=== PATIENT | male | born 1955 | race Caucasian/White ===

== ENCOUNTER 2021-11-01 13:10 | Outpatient (CLI) | payer MEDICARE, SELFPAY ==
--- NOTE | 2021-11-01 13:34 | XR_ITS ---
WS: [id number] XR knee RT 1-2V [id number] REASON FOR EXAM: Right knee pain and swelling. FINDINGS: No fracture or focal bone lesion. Mild narrowing of the medial and lateral knee joint space with mild subchondral sclerosis and small m arginal osteophytes. Similar arthropathic change in the patellofemoral joint space. No soft tissue abnormality. XR/XR knee RT 1-2V [id number] IMPRESSION: Mild changes of osteoarthritis in the right knee.
== END 2021-11-01 13:11 | disposition home or self-care (01) ==
LOC: RAD 13:13
PROVIDERS: Visit Provider Internal Medicine
DX: M17.11 Unilateral primary osteoarthritis, right knee (principal); M25.561 Pain in right knee; M25.461 Effusion, right knee
CPT/HCPCS: 73560

== ENCOUNTER → 2021-12-05 08:19 | Outpatient (BNVA) | payer MEDICARE, SELFPAY | PROVIDERS: Referring Provider Family Medicine Adult Medicine; Visit Provider Orthopaedic Surgery | DX: M25.561 Pain in right knee (principal) | CPT/HCPCS: 99203 ==

== ENCOUNTER 2022-04-05 11:28 | Outpatient (CLI) | payer MEDICARE, SELFPAY ==
--- NOTE | 2022-04-05 11:40 | IR_ITS ---
WS: [id number] Right knee arthrogram for CT of the right knee, 04/05/2022 Clinical Data: PAIN IN RIGHT KNEE Comparison: Right knee, 11/01/2021 Fluoroscopy time: 0min [id number] # of spot films: 1 Findings: With the usual technique the medial aspect of the right knee was cleansed with an alcohol solution. T hen 5 mL of 1% lidocaine were injected via a 25-gauge needle into the subcutaneous tissue of the righ t knee. There an 18-gauge needle was inserted and a mixture of half saline and half Omnipaque 240 fo r a total of 40 mL was injected filling entire right knee joint. There were no complications. IR/[place] [id number] Impression: Right knee arthrogram to inject contrast for right knee CT scan.
--- NOTE | 2022-04-05 12:30 | CT_ITS ---
WS: [id number] CT scan of the right knee. Additional two-dimensional coronal and sagittal reconstruction was perform ed. MIP images were also performed. 04/05/2022 Clinical Data: M25.561 - Pain in right knee Comparison: Right knee, 11/01/2021 DLP: 425.[address] scans at [facility] use at least one of these dose optimization techniques: automated e xposure control; mA and/or kV adjustment per patient size (includes targeted exams where dose is matc hed to clinical indication); or iterative reconstruction. Findings: Contrast material filled the knee joint. There was a small mid cartilage defect of the lateral chond rocartilage on the tibial and the condyle surface. There is a small mid cartilage defect of the media l chondrocartilage on the condyle surface. The medial and lateral menisci show no tears. The anterior cruciate and posterior cruciate ligaments are intact. The medial and lateral collateral ligaments show no tears or swelling. There is a small B efrain's cyst. Patella shows minimal chondromalacia. No fractures are seen. The soft tissues surroundin g the knee show no abnormalities. CT/CT knee RT w con [id number] Impression: 1. Small cartilage defects of the lateral and medial chondrocartilage. 2. Small Ruggiero's cyst. 3. Negative for meniscal or ligamentous tears.
[2022-04-05] MEDS: iohexol 240 mg/mL 50 mL Btl INTRA-ARTI (12:52)
== END 2022-04-05 11:29 | disposition home or self-care (01) ==
PROVIDERS: PCP Internal Medicine; Visit Provider Orthopaedic Surgery
DX: M71.21 Synovial cyst of popliteal space [Baker], right knee (principal)
CPT/HCPCS: 27369; 73701; 77002

== ENCOUNTER → 2022-04-09 08:33 | Outpatient (BNVA) | payer MEDICARE, SELFPAY | PROVIDERS: PCP Internal Medicine; Visit Provider Orthopaedic Surgery | DX: M25.561 Pain in right knee (principal) | CPT/HCPCS: 99213 ==

== ENCOUNTER → 2022-04-26 11:35 | Outpatient (BNVA) | payer MEDICARE, SELFPAY | PROVIDERS: Visit Provider Family Medicine | DX: I10 Essential (primary) hypertension (principal); E78.5 Hyperlipidemia, unspecified; E11.9 Type 2 diabetes mellitus without complications; M25.561 Pain in right knee; R35.1 Nocturia | CPT/HCPCS: 80053; 80061; 82043; 83036; 84153; 85025 ==

== ENCOUNTER → 2022-08-07 08:26 | Outpatient (BNVA) | payer MEDICARE, SELFPAY | PROVIDERS: PCP Family Medicine; Visit Provider Podiatrist Foot & Ankle Surgery | DX: M20.10 Hallux valgus (acquired), unspecified foot (principal); M77.41 Metatarsalgia, right foot; M77.42 Metatarsalgia, left foot | CPT/HCPCS: 73630; 99204 ==

== ENCOUNTER → 2022-08-14 13:14 | Outpatient (BNVA) | payer MEDICARE, SELFPAY | PROVIDERS: PCP Family Medicine; Visit Provider Orthopaedic Surgery | DX: M17.11 Unilateral primary osteoarthritis, right knee (principal) | CPT/HCPCS: 99213 ==

== ENCOUNTER → 2022-08-28 08:08 | Outpatient (BNVA) | payer MEDICARE, SELFPAY | PROVIDERS: PCP Family Medicine; Visit Provider Podiatrist Foot & Ankle Surgery | DX: M20.12 Hallux valgus (acquired), left foot (principal); M77.41 Metatarsalgia, right foot; M77.42 Metatarsalgia, left foot | CPT/HCPCS: 99213 ==

== ENCOUNTER → 2022-09-11 08:42 | Outpatient (BNVA) | payer MEDICARE, SELFPAY | PROVIDERS: PCP Family Medicine; Visit Provider Podiatrist Foot & Ankle Surgery | DX: M20.12 Hallux valgus (acquired), left foot (principal); M77.41 Metatarsalgia, right foot; M77.42 Metatarsalgia, left foot | CPT/HCPCS: 99213 ==

== ENCOUNTER 2023-02-25 10:39 | Outpatient (CLI) | payer MEDICARE, SELFPAY ==
--- NOTE | 2023-02-25 11:00 | USCV_ITS ---
Glenn Fierro Age: 67 Gender: M : 1955 Exam Date: 02/25/2023 11:08 Ordering Phys: Siomara Bello DO Technologist: Tarah Smith [place]am [place] [facility] [place]ication: RLE pain and swelling HISTORY: patient is on plavix, history of CVA. RLE swelling and pain. Chronic RT knee pain PROCEDURES: On the right side, the common femoral, superficial femoral, profunda femoral, popliteal, posterior tibial, greater saphenous veins and the peroneal trunk were identified and interrogated in the standard fashion. These veins were found to be easily compressible with spontaneous blood flow. FINDINGS: No evidence of DVT seen in any vessel visualized at this time. CONCLUSIONS No evidence of right lower extremity DVT. Mayito Serra MD (Electronically Signed) Final Date: 25 February 2023 12:51 S
== END 2023-02-25 10:40 | disposition home or self-care (01) ==
PROVIDERS: PCP Family Medicine; Visit Provider Family Medicine
DX: M79.89 Other specified soft tissue disorders (principal); M79.604 Pain in right leg
CPT/HCPCS: 93971

== ENCOUNTER → 2023-03-24 08:17 | Outpatient (BNVA) | payer MEDICARE, SELFPAY | PROVIDERS: PCP Family Medicine; Visit Provider Family Medicine | DX: I10 Essential (primary) hypertension (principal); E11.9 Type 2 diabetes mellitus without complications; Z79.4 Long term (current) use of insulin; R35.1 Nocturia; E78.2 Mixed hyperlipidemia; G47.00 Insomnia, unspecified | CPT/HCPCS: 80053; 80061; 82043; 83036; 84153; 85025 ==

== ENCOUNTER → 2023-04-01 07:53 | Outpatient (BNVA) | payer MEDICARE, SELFPAY | PROVIDERS: PCP Family Medicine; Referring Provider Family Medicine; Visit Provider Student in an Organized Health Care Education/Training Program | DX: M25.561 Pain in right knee (principal); M23.306 Other meniscus derangements, unspecified meniscus, right knee | CPT/HCPCS: 73560; 73565; 99213 ==

== ENCOUNTER 2023-05-06 10:22 | Outpatient (CLI) | payer MEDICARE, SELFPAY ==
--- NOTE | 2023-05-06 11:00 | MR_ITS ---
WS: [id number] MRI RIGHT KNEE HISTORY: Generalized knee pain and limited range of motion. COMPARISON: Radiographs 04/01/2023 Anterior cruciate ligament: Intact. Posterior cruciate ligament: Intact. Medial collateral ligament: Slightly extruded meniscus contacts and displaces the MCL. No MCL tear. T here is a small amount of fluid between the MCL and the femoral condyle. Posterior lateral corner structures: Intact. Medial menisci: Blunting of the free edge of the posterior horn with loss of the normal triangular sh ape. Lateral meniscus: Intrasubstance degeneration. There is loss of the normal configuration of the poste rior meniscus towards the meniscal root. Highly suspicious for tear. Extensor mechanism: Distal quadriceps tendon and patellar tendons are intact. Fluid and soft tissue: Small suprapatellar joint effusion. There is a small amount of edema along the anterior knee. No Ruggiero's cyst. Osseous and articular structures: Patellofemoral compartment: Subchondral cystic changes along the patellar eminence. Patellar retinacu lum intact. Very minimal superficial chondromalacia medial patellar facet. Medial compartment: Mild narrowing of the medial compartment. Mild chondromalacia. No fractures or ma rrow edema. Lateral compartment: Mild narrowing. Very minimal superficial thinning and fissuring of the cartilage . IMPRESSION: 1. Abnormal shape and signal involving the posterior horns of both the medial and lateral menisci. Co nsistent with meniscal tear. Medial meniscal tear at the free edge and the lateral meniscal tear towa rds the meniscal root. 2. Moderate narrowing of the medial compartment and mild narrowing of the lateral compartment with ch ondromalacia. 3. No ACL tear.
== END 2023-05-06 10:23 | disposition home or self-care (01) ==
LOC: RAD 10:22
PROVIDERS: PCP Family Medicine; Visit Provider Student in an Organized Health Care Education/Training Program
DX: S83.241A Other tear of medial meniscus, current injury, right knee, initial encounter (principal); S83.281A Other tear of lateral meniscus, current injury, right knee, initial encounter; X58.XXXA Exposure to other specified factors, initial encounter; M94.261 Chondromalacia, right knee
CPT/HCPCS: 73721

== ENCOUNTER → 2023-06-06 09:30 | Outpatient (BNVA) | payer MEDICARE, SELFPAY | PROVIDERS: PCP Family Medicine; Visit Provider Student in an Organized Health Care Education/Training Program | DX: S83.206A Unspecified tear of unspecified meniscus, current injury, right knee, initial encounter (principal); X58.XXXA Exposure to other specified factors, initial encounter | CPT/HCPCS: 99214 ==

== ENCOUNTER 2023-06-20 10:30 | Outpatient (CLI) | payer MEDICARE, SELFPAY ==
--- NOTE | 2023-06-20 10:38 | XRR_ITS ---
PROCEDURE INFORMATION: Exam: XR Right Shoulder Exam date and time: 06/20/2023 10:56 AM Age: 68 years old Clinical indication: Pain; Shoulder; Right; Additional info: Acute right shoulder pain TECHNIQUE: Imaging protocol: Radiologic exam of the right shoulder. Views: 2 or more views. COMPARISON: No relevant prior studies available. FINDINGS: Bones/joints: Evidence of wires, leads projecting over thorax, over region of spine and right hemithorax medially, oriented longitudinally, superior to inferiorly. Configuration density, lucency/cystic lucency, undulation upper outer humeral head possibly anatomic versus residue previous Hill-Sachs lesion or other process. Otherwise, no additional new appearing displaced fracture nor dislocation seen. Mild degenerative changes AC joint. Degenerative changes spine. Soft tissues: Normal. XR/XR shoulder RT min 2V* [id number] IMPRESSION: No new appearing displaced fracture seen of right shoulder. Please see body of report for findings.
== END 2023-06-20 10:31 | disposition home or self-care (01) ==
LOC: RAD 10:32
PROVIDERS: PCP Family Medicine; Visit Provider Family Medicine
DX: M25.511 Pain in right shoulder (principal)
CPT/HCPCS: 73030

== ENCOUNTER 2023-08-22 07:39 | Outpatient (CLI) | payer MEDICARE, SELFPAY ==
--- NOTE | 2023-08-22 08:00 | MR_ITS ---
WS: [id number] MRI RIGHT SHOULDER NONCONTRAST TECHNIQUE: Sagittal T2, coronal T1, T2 and proton density imaging. Axial gradient PDE imaging. CLINICAL INFORMATION: Right shoulder pain COMPARISON: None. FINDINGS: Moderate degenerative arthritis AC joint. Mild downsloping acromion with narrowing of the subacromial space. Slight subacromial spurring. Impingement distal supraspinatus. Supraspinatus and infraspinatu s appear intact. Normal teres minor. Subscapularis appears intact. Biceps tendon intact within the bi cipital groove. Intra-articular biceps tendon appears intact. Increased T2 signal compatible with ten dinopathy or intrasubstance tear involving the proximal intra-articular biceps tendon. Glenoid labrum appears grossly normal. Moderate degenerative narrowing of the glenohumeral articulati on. Biceps labral anchor appears intact. Small amount of subchondral cystic change involving the grea ter tuberosity. Normal bone marrow signal in the glenoid. IMPRESSION: 1. Moderate degenerative arthritis AC joint with mild fluid and edema. Narrowing of the subacromial space. Subacromial spurring with impingement of distal supraspinatus. 2. Chronic thinning of the supraspinatus and infraspinatus which appear intact. No acute appearing r otator cuff tears. 3. Biceps tendon intact within the bicipital groove. 4. Partial intrasubstance tear or tendinopathy involving the intra-articular biceps tendon proximall y. Intra-articular biceps tendon otherwise appears intact. 5. No other acute findings.
== END 2023-08-22 07:40 | disposition home or self-care (01) ==
LOC: RAD 07:39
PROVIDERS: PCP Family Medicine; Visit Provider Family Medicine
DX: M19.011 Primary osteoarthritis, right shoulder (principal)
CPT/HCPCS: 73221

== ENCOUNTER → 2023-09-26 09:11 | Outpatient (BNVA) | payer OTHER, SELFPAY | PROVIDERS: PCP Family Medicine; Visit Provider Family Medicine | DX: E11.9 Type 2 diabetes mellitus without complications (principal); Z79.4 Long term (current) use of insulin | CPT/HCPCS: 80053; 83036 ==

== ENCOUNTER → 2023-09-30 09:06 | Outpatient (BNVA) | payer OTHER, SELFPAY | PROVIDERS: PCP Family Medicine; Visit Provider Family Medicine | DX: E11.9 Type 2 diabetes mellitus without complications (principal); Z79.4 Long term (current) use of insulin | CPT/HCPCS: 83036 ==

== ENCOUNTER 2023-10-09 11:25 | Outpatient (CLI) | payer OTHER, SELFPAY ==
--- NOTE | 2023-10-09 12:00 | USCV_ITS ---
Glenn Fierro Age: 68 Gender: M : 1955 Exam Date: 10/09/2023 12:07 Ordering Phys: Siomara Bello DO Technologist: MOLINA Exam Location: [facility] – [place]_ Indication: HISTORY: Lower extremity swelling. PROCEDURES: Venous duplex imaging was performed in only the right lower extremity. The following venous structures were evaluated: common femoral vein, profunda vein, proximal portion of the greater saphenous vein, superficial femoral vein, and the popliteal vein. Serial compression, augmentation maneuvers, and spectral Doppler flow evaluation were performed. Grayscale and doppler images were obtained. Reflux maneuvers were performed with patient in the standing position. FINDINGS: he veins were found to be easily compressible with spontaneous blood flow. Non pulsatile flow pattern. Significant venous duplex was noted at the saphenofemoral junction and proximal greater saphenous vein segment. The reflux times were 3.4 and 1.4 seconds respectively. The venous dimensions where 0.5 and 0.3 cm at these levels and they were at a depth of 1.5 and 2.1 cm CONCLUSIONS 1. No evidence of DVT in the above-mentioned identifiable veins. 2. Significant venous reflux of greater than 500 ms were noted at the saphenofemoral junction and proximal greater saphenous vein segments. 3. The venous dimensions , reflux times and depth from the surface are as mentioned above. Dr Vaughn Tariq MD [facility] (Electronically Signed) Final Date: 10 October 2023 16:31 S
== END 2023-10-09 11:26 | disposition home or self-care (01) ==
LOC: RAD 11:26
PROVIDERS: PCP Family Medicine; Visit Provider Family Medicine
DX: M79.89 Other specified soft tissue disorders (principal)
CPT/HCPCS: 93971

== ENCOUNTER 2023-10-13 08:46 | Outpatient (CLI) | payer OTHER, SELFPAY ==
--- NOTE | 2023-10-13 08:45 | USCV_ITS ---
Glenn Fierro Age: 68 Gender: M : 1955 Exam Date: 10/13/2023 09:17 Ordering Phys: Siomara Bello DO Technologist: NAWAF Exam Location: [facility] – [place] Indication: LE Swelling Risk Factors: Previous Vascular Surgery: RIGHT LEFT BP: 107.0 / 64.00 BP: 124.0/ 79.00 0 0 Waveform Velocity (cm/s) Velocity (cm/s) Waveform Triphasic 67.5 Iliac Prox Triphasic 66.4 Iliac Mid Triphasic 61.9 Iliac Distal Triphasic 99.0 [employer]OMAT[employer] GR[employer] Triphasic 76.0 SFA Prox Triphasic 85.0 SFA Mid Triphasic 56.0 SFA Dist Triphasic 58.0 POP Triphasic 68.0 [employer]IAN Triphasic 73.0 DPA 1.1 ROLY FINDINGS Minimal plaque in the iliac, femoral and popliteal artery on the right side Normal arterial Doppler waveforms and velocities Resting ROLY 1.1 on the right side CONCLUSIONS 1. Normal resting ROLY of 1.1 on the right side. 2. Minimal plaques with no significant arterial obstruction Dr Vaughn Tariq MD [facility] (Electronically Signed) Final Date: 15 October 2023 08:41 S
== END 2023-10-13 08:47 | disposition home or self-care (01) ==
LOC: RAD 08:47
PROVIDERS: PCP Family Medicine; Visit Provider Family Medicine
DX: M79.89 Other specified soft tissue disorders (principal)
CPT/HCPCS: 93926

== ENCOUNTER → 2024-10-20 11:23 | Outpatient (BNVA) | payer OTHER, SELFPAY | PROVIDERS: PCP Family Medicine Adult Medicine; Visit Provider Family Medicine | DX: E11.9 Type 2 diabetes mellitus without complications (principal); Z79.4 Long term (current) use of insulin | CPT/HCPCS: 80053; 80061; 83036; 84443 ==

== ENCOUNTER 2024-11-24 12:44 | Outpatient (CLI) | payer MEDICARE, SELFPAY ==
--- NOTE | 2024-11-24 12:48 | XR_ITS ---
WS: [email or web address] XR lumbar spine 2-3V* [id number] REASON FOR EXAM: pain over neurostimulator FINDINGS: Neurostimulator battery pack in place over the right lower back. Leads are intact and appear attached. No soft tissue abnormality around the battery pack is noted. Moderate rotatory dextroscoliosis. Biconcave compression deformities of T12 and L1. Significant narrowing of the intervertebral disc spaces at L1-L2 and L2-L3 with moderate endplate sclerosis and osteophytosis. Mild to moderate narrowing of the L4 3 L4 disc space. No spondylolysis. 3 mm of anterolisthesis of L4 in relation to L3 and L3 in relation to L2. XR/XR lumbar spine 2-3V* [id number] IMPRESSION: No abnormality of the battery pack and leads identified. Multilevel degenerative spondylosis as above.
--- NOTE | 2024-11-24 12:48 | XR_ITS ---
WS: [email or web address] XR ankle RT min 3V* [id number] REASON FOR EXAM: acute pain swelling (2 wk) w/o injury FINDINGS: No fracture or focal bone lesion. No periosteal reaction or bone erosion. The joint spaces of the right ankle are intact and well preserved. No significant subchondral bone abnormality. XR/XR ankle RT min 3V* [id number] IMPRESSION: No significant bone or joint abnormality.
== END 2024-11-24 12:45 | disposition home or self-care (01) ==
PROVIDERS: PCP Family Medicine; Visit Provider Family Medicine
DX: M25.571 Pain in right ankle and joints of right foot (principal); T85.9XXA Unspecified complication of internal prosthetic device, implant and graft, initial encounter; X58.XXXA Exposure to other specified factors, initial encounter; M41.86 Other forms of scoliosis, lumbar region; M48.54XA Collapsed vertebra, not elsewhere classified, thoracic region, initial encounter for fracture; M48.56XA Collapsed vertebra, not elsewhere classified, lumbar region, initial encounter for fracture; M25.78 Osteophyte, vertebrae; M47.896 Other spondylosis, lumbar region; M43.16 Spondylolisthesis, lumbar region
CPT/HCPCS: 72100; 73610

== ENCOUNTER → 2024-11-26 10:27 | Outpatient (BNVA) | payer MEDICARE, SELFPAY | PROVIDERS: PCP Family Medicine; Visit Provider Family Medicine | DX: Z12.5 Encounter for screening for malignant neoplasm of prostate (principal); M25.571 Pain in right ankle and joints of right foot | CPT/HCPCS: 84550; G0103 ==

== ENCOUNTER → 2024-12-07 07:47 | Outpatient (BNVA) | payer MEDICARE, SELFPAY | PROVIDERS: PCP Family Medicine; Visit Provider Orthopaedic Surgery | DX: M54.9 Dorsalgia, unspecified (principal); M54.41 Lumbago with sciatica, right side; G89.29 Other chronic pain | CPT/HCPCS: 72110; 99203 ==

== ENCOUNTER 2024-12-21 06:58 | Outpatient (CLI) | payer MEDICARE, SELFPAY ==
--- NOTE | 2024-12-21 07:15 | MR_ITS ---
WS: [id number] MRI LUMBAR SPINE NONCONTRAST HISTORY: Back Pain COMPARISON: Radiograph 12/07/2024 TECHNIQUE: Sagittal and axial multisequence imaging is submitted. Reversal of the normal cervical lordosis with asymmetric disc space narrowing at C5-6 and C6-7. Mild anterior wedging of C6. Small cervical disc osteophyte complexes encroaching upon the cervical canal at C4-5, C5-6 and C6-7. Mild increase in thoracic kyphosis. Mild increase in curvature. 3 mm retrolisthesis of L2. Marrow edema in the adjacent endplates of L2 and L3. Disc spaces are narrowed and desiccated, most significant at L2-3. Conus terminates normally at L1. Dorsal column stimulator wire is noted inseparable from the thecal sac at T12- L1. Wire closely associated with the thoracic cord. Exact location is difficult to confirm by MRI due to the artifact. L1-L2: Diffuse annular disc bulging with mild osteophytic ridging and facet arthritis. No stenosis. L2-L3: Diffuse annular disc bulging asymmetric to the RIGHT. Osteophytic ridging, facet disease. Mild subarticular recess with bilateral foraminal stenosis. L3-L4: Diffuse annular disc bulging. RIGHT foraminal disc osteophyte complex. Smaller disc osteophyte complex LEFT foramen. There is contact on the exiting L3 nerve roots. Mild disc contact on the traversing L4 nerve roots, RIGHT greater than LEFT. Moderate bilateral foraminal stenosis. L4-L5: Diffuse annular disc bulging with mild contact on the RIGHT traversing L5 nerve root. Mild disc osteophyte complexes extending into the foramina. Moderate RIGHT and mild LEFT foraminal stenosis. L5-S1: Small central disc protrusion mild bilateral osteophytic ridging and facet arthritis. Small foraminal disc osteophytes. Mild bilateral foraminal stenosis. No definite contact on the S1 nerve roots. Paravertebral soft tissues are normal. MR/MR lumbar spine wo con* [id number] IMPRESSION: 1. No acute fractures. 2. Mild degenerative disc disease at L2-3 and facet arthritis. 3. L3-4: RIGHT proximal foraminal disc osteophyte complex with a smaller disc osteophyte complex LEFT foramen. Mild disc osteophyte contact on the exiting L3 nerve roots and the traversing L4 nerve roots, RIGHT greater than LEFT. Modera te bilateral foraminal stenosis. 4. L4-5: Bilateral foraminal disc osteophyte complexes with moderate RIGHT and mild LEFT foraminal stenosis. Mild contact on the traversing L5 nerve roots. 5. L5-S1: Mild foraminal stenosis. 6. L2-3: Mild annular disc bulging. Moderate bilateral foraminal stenosis, RIG HT greater than LEFT.
== END 2024-12-21 06:59 | disposition home or self-care (01) ==
LOC: RAD 06:59
PROVIDERS: PCP Family Medicine; Visit Provider Orthopaedic Surgery
DX: M51.369 Other intervertebral disc degeneration, lumbar region without mention of lumbar back pain or lower extremity pain (principal); M47.896 Other spondylosis, lumbar region; M25.78 Osteophyte, vertebrae; M48.061 Spinal stenosis, lumbar region without neurogenic claudication; M48.07 Spinal stenosis, lumbosacral region; M50.322 Other cervical disc degeneration at C5-C6 level; M50.323 Other cervical disc degeneration at C6-C7 level; M48.52XA Collapsed vertebra, not elsewhere classified, cervical region, initial encounter for fracture; M40.294 Other kyphosis, thoracic region; R93.7 Abnormal findings on diagnostic imaging of other parts of musculoskeletal system; R93.89 Abnormal findings on diagnostic imaging of other specified body structures; M51.27 Other intervertebral disc displacement, lumbosacral region; M47.897 Other spondylosis, lumbosacral region
CPT/HCPCS: 72148

== ENCOUNTER → 2024-12-27 09:40 | Outpatient (BNVA) | payer MEDICARE, SELFPAY | PROVIDERS: PCP Family Medicine; Visit Provider Orthopaedic Surgery | DX: M48.062 Spinal stenosis, lumbar region with neurogenic claudication (principal) | CPT/HCPCS: 72110; 99214 ==

== ENCOUNTER → 2025-01-04 08:13 | Outpatient (BNVA) | payer MEDICARE, SELFPAY | PROVIDERS: PCP Family Medicine; Visit Provider Anesthesiology Pain Medicine | DX: M48.062 Spinal stenosis, lumbar region with neurogenic claudication (principal); M47.816 Spondylosis without myelopathy or radiculopathy, lumbar region | CPT/HCPCS: 99214 ==

== ENCOUNTER 2025-01-18 13:52 | Outpatient (RCR) | payer MEDICARE, SELFPAY | END 2025-01-20 23:59 | disposition home or self-care (01) | LOC: SPT 13:52 | PROVIDERS: PCP Family Medicine; Visit Provider Anesthesiology Pain Medicine | DX: M54.59 Other low back pain (principal) | CPT/HCPCS: 97161 ==

== ENCOUNTER 2025-01-21 05:00 | Outpatient (RCR) | payer MEDICARE, SELFPAY | END 2025-02-11 08:56 | disposition home or self-care (01) | LOC: SPT 05:00 | PROVIDERS: PCP Family Medicine; Visit Provider Anesthesiology Pain Medicine | DX: M48.062 Spinal stenosis, lumbar region with neurogenic claudication (principal) | CPT/HCPCS: 97110 ==

== ENCOUNTER → 2025-03-07 09:14 | Outpatient (BNVA) | payer MEDICARE, SELFPAY | PROVIDERS: PCP Family Medicine; Visit Provider Anesthesiology Pain Medicine | DX: M48.062 Spinal stenosis, lumbar region with neurogenic claudication (principal); M47.816 Spondylosis without myelopathy or radiculopathy, lumbar region | CPT/HCPCS: 99214 ==

== ENCOUNTER → 2025-04-04 10:35 | Outpatient (BNVA) | payer MEDICARE, SELFPAY | PROVIDERS: PCP Family Medicine; Visit Provider Family Medicine | DX: I25.10 Atherosclerotic heart disease of native coronary artery without angina pectoris (principal); E11.9 Type 2 diabetes mellitus without complications; Z79.4 Long term (current) use of insulin; E78.2 Mixed hyperlipidemia | CPT/HCPCS: 80053; 80061; 83036 ==

== ENCOUNTER → 2025-04-06 08:30 | Outpatient (BNVA) | payer MEDICARE, SELFPAY | PROVIDERS: PCP Family Medicine; Visit Provider Podiatrist Foot & Ankle Surgery | DX: M25.571 Pain in right ankle and joints of right foot (principal); M76.811 Anterior tibial syndrome, right leg | CPT/HCPCS: 73610 ==

== ENCOUNTER 2025-04-06 09:53 | Outpatient (CLI) | payer MEDICARE, SELFPAY | END 2025-04-06 09:54 | disposition home or self-care (01) | LOC: SPT 09:54 | PROVIDERS: PCP Family Medicine; Visit Provider Podiatrist Foot & Ankle Surgery | DX: Z46.89 Encounter for fitting and adjustment of other specified devices (principal); M76.821 Posterior tibial tendinitis, right leg | CPT/HCPCS: L4361 ==

== ENCOUNTER → 2025-04-20 08:57 | Outpatient (BNVA) | payer MEDICARE, SELFPAY | PROVIDERS: PCP Family Medicine; Visit Provider Podiatrist Foot & Ankle Surgery | DX: M76.811 Anterior tibial syndrome, right leg (principal) | CPT/HCPCS: 99214 ==

== ENCOUNTER 2025-05-05 08:29 | Outpatient (CLI) | payer MEDICARE, SELFPAY ==
--- NOTE | 2025-05-05 08:45 | MRR_ITS ---
PROCEDURE INFORMATION: Exam: MR Right Lower Extremity Joint Without Contrast; Ankle Exam date and time: 05/05/2025 9:35 AM Age: 70 years old Clinical indication: Ankle; Right; Possible tendon tear, anterior pain/limited range of motion x 5 months. No known injury TECHNIQUE: Imaging protocol: Magnetic resonance imaging of the right lower extremity without contrast. Exam focused on the ankle. COMPARISON: CR XR ankle RT min 3V* [id number] 04/06/2025 8:39 AM FINDINGS: Bones/joints: There is mild midfoot polyarticular degenerative osteophytosis. There is no acute reactive marrow edema identified. There is a small degenerative subchondral cyst seen in the medial corner of the talar dome. There is mild chondromalacia throughout the cartilage of the talar dome. The subtalar cartilage is well-maintained. LIGAMENTS: Distal tibiofibular syndesmosis: Unremarkable. No tear. Anterior talofibular ligament: Unremarkable. No tear. Posterior talofibular ligament: Unremarkable. No tear. Calcaneofibular ligament: Unremarkable. No tear. Deltoid ligament complex: Unremarkable. No tear. TENDONS: Flexor tendons of foot: Unremarkable as visualized. Tibialis posterior tendon: There is mild tenosynovitis of the posterior tibialis tendon. Peroneal tendons: Unremarkable as visualized. Extensor tendons of foot: Unremarkable as visualized. Tibialis anterior tendon: Unremarkable as visualized. Achilles tendon: Unremarkable as visualized. Tarsal canal (Sinus tarsi): There is a multiseptated ganglion arising from the anterolateral edge of the sinus tarsi wrapping along the lateral margin of the talar head to the dorsal margin of the talar head. This measures craniocaudal 24 mm by anterior to posterior 18 mm by [id number] 12 mm. Tarsal tunnel: Unremarkable. Soft tissues: There is generalized periarticular soft tissue subcutaneous nonspecific edema. Plantar fascia: There is mild heterogenous increased T2 signal at the calcaneal attachment of the plantar aponeurosis through its origin. This extends the entire width from [id number]. There is no full-thickness tear. MR/MR ankle RT wo con* [id number] IMPRESSION: 1. Lateral margin ganglion arising from the sinus tarsi as detailed. 2. Mild polyarticular degenerative osteoarthritis of the tibiotalar joint and midfoot articulations. 3. Mild tenosynovitis of the posterior tibialis tendon. 4. Generalized periarticular soft tissue edema. 5. Mild plantar fascia origin plantar fasciitis.
== END 2025-05-05 08:30 | disposition home or self-care (01) ==
LOC: RAD 08:30
PROVIDERS: PCP Family Medicine; Visit Provider Podiatrist Foot & Ankle Surgery
DX: S96.911A Strain of unspecified muscle and tendon at ankle and foot level, right foot, initial encounter (principal); X58.XXXA Exposure to other specified factors, initial encounter
CPT/HCPCS: 73721

== ENCOUNTER → 2025-05-24 08:36 | Outpatient (BNVA) | payer MEDICARE, SELFPAY | PROVIDERS: PCP Family Medicine; Visit Provider Podiatrist Foot & Ankle Surgery | DX: M76.811 Anterior tibial syndrome, right leg (principal) | CPT/HCPCS: 99213 ==

== ENCOUNTER 2025-06-06 10:24 | Outpatient (RCR) | payer MEDICARE, SELFPAY | END 2025-06-22 23:59 | disposition home or self-care (01) | LOC: SPT 10:24 | PROVIDERS: PCP Family Medicine; Visit Provider Podiatrist Foot & Ankle Surgery | DX: M76.811 Anterior tibial syndrome, right leg (principal) | CPT/HCPCS: 97033; 97110; 97140; 97161 ==